=== PATIENT | male | born 1985 | race Caucasian/White ===

== ENCOUNTER 2023-04-08 13:39 | Emergency (ER) | payer OTHER, SELFPAY ==
[2023-04-08 13:41] VITALS: BP 133/76; PULSE 74; RESP 16; TEMP 36.8; O2SAT 97
--- NOTE | 2023-04-08 16:04 | ED.GENADULT ---
HPI - General Adult General Chief complaint: Unspecified Stated complaint: rectal prolapse Time Seen by Provider: 04/08/23 15:54 History of Present Illness HPI narrative: Patient presents with rectal pain, he is concern for rectal prolapse, ongoing for 2 days. No recent straining, has been using sitz bath's with some improvement. Related Data Allergies Allergy/AdvReac Type Severity Reaction Status Date / Time Penicillins Allergy Mild Unverified 02/16/09 12:45 Review of Systems Review of Systems: CONST: No fever. HEENT: No sore throat C/V: No chest pain RESP: No cough GI: No abdominal pain : No dysuria. M/S: No joint pain. SKIN: No rash. NEURO: [No headache or focal numbness or weakness] PSYCH: [No depression] Exam Narrative: EXAMINATION OF ORGAN SYSTEMS/BODY AREAS: Constitutional: Vital signs per nursing GENERAL:[No acute distress, non-toxic appearing.] HEAD: Normal with no signs of head trauma. EYES: EOMI, conjunctiva normal ENT: Hearing grossly intact LUNGS: Nonlabored breathing. HEART: [Regular rate and rhythm] ABD: [Soft], [nontender to palpation] RECTAL: Thrombosed external hemorrhoid without signs of rectal prolapse EXT: Normal range of motion SKIN: [No rashes or lesions.] NEURO: [Alert and oriented x 3. No gross focal sensory or strength deficits.] PSYCH: Normal affect Course Vital Signs Vital signs: Vital Signs Temperature 98.2 F 04/08/23 13:41 Pulse Rate 74 04/08/23 13:41 Respiratory Rate 16 04/08/23 13:41 Blood Pressure 133/76 04/08/23 13:41 Pulse Oximetry 97 04/08/23 13:41 Oxygen Delivery Room Air 04/08/23 13:41 Temperature 98.2 F 04/08/23 13:41 Pulse Rate 74 04/08/23 13:41 Respiratory Rate 16 04/08/23 13:41 Blood Pressure 133/76 04/08/23 13:41 Pulse Oximetry 97 04/08/23 13:41 Oxygen Delivery Room Air 04/08/23 13:41 Medical Decision Making [facility] Narrative Medical decision making narrative: Patient presenting with concern for rectal prolapse, he had pain for the last few days, on exam he does not have prolapse he does have thrombosed external hemorrhoids, he is otherwise tolerating the pain. He is already doing sitz bath's, I will give him prescriptions for Anusol and viscous lidocaine and given close follow-up with general surgery. Patient agreeable to this. Vital Signs Vital Signs: Vital Signs Temperature 98.2 F 04/08/23 13:41 Pulse Rate 74 04/08/23 13:41 Respiratory Rate 16 04/08/23 13:41 Blood Pressure 133/76 04/08/23 13:41 Pulse Oximetry 97 04/08/23 13:41 Oxygen Delivery Room Air 04/08/23 13:41 Temperature 98.2 F 04/08/23 13:41 Pulse Rate 74 04/08/23 13:41 Respiratory Rate 16 04/08/23 13:41 Blood Pressure 133/76 04/08/23 13:41 Pulse Oximetry 97 04/08/23 13:41 Oxygen Delivery Room Air 04/08/23 13:41 Discharge Plan Discharge Clinical Impression: External hemorrhoid, thrombosed Patient Disposition: Home, Self-Care Condition: Stable Instructions: Antibiotic Form, Thrombosed Hemorrhoid (ED) Additional Instructions: Please call general surgery as soon as possible for followup. Prescriptions: New hydrocortisone [Anusol-HC] 2.5 % cream with perineal applicator 1 applic RECTAL DAILY PRN (Reason: hemorrhoids) Qty: 30 0RF lidocaine HCl [Aspercreme (lidocaine HCl)] 4 % cream 1 applic topical Q8H PRN (Reason: pain) Qty: 120 0RF Rx Instructions: Apply to hemorrhoid. Follow-up/Referrals: Tao Richter MD [Physician] - 2 Days PHYSICIAN,WORK AND FAMILY LIFE CONSULTANT [Primary Care Provider] -
== END 2023-04-08 16:18 | disposition home or self-care (01) ==
LOC: ANHED 16:09
PROVIDERS: Emergency Provider Emergency Medicine
DX: K64.5 Perianal venous thrombosis (principal)
CPT/HCPCS: 99283

== ENCOUNTER 2023-10-03 19:22 | Emergency (ER) | payer MEDICAID, SELFPAY ==
[2023-10-03 19:31] VITALS: BP 139/92; PULSE 85; RESP 18; TEMP 36.6; O2SAT 99
--- NOTE | 2023-10-03 20:24 | ED.GENADULT ---
HPI - General Adult General Chief complaint: Unspecified Stated complaint: Infected tattoo Time Seen by Provider: 10/03/23 19:45 Source: patient Mode of arrival: ambulatory Limitations: no limitations History of Present Illness HPI narrative: This is a 38-year-old male who presents to the ED with chief complaint of possible infected tattoo to the left forearm. Patient reports that he get the 10-8 days ago. Reports that he had a local reaction to the adhesive covering. He states that he started to notice some scabbing to the middle of the tattoo. He had been covering with bacitracin. When he removed part of he noticed a scab came there were some purulent fluid. Reports some generalized redness but minimal pain. Denies fevers, chills, nausea, vomiting. Related Data Allergies Allergy/AdvReac Type Severity Reaction Status Date / Time Penicillins Allergy Mild Unverified 02/16/09 12:45 Review of Systems Review of Systems: All systems as dictated in HPI Exam Narrative: GENERAL: Well-appearing, well-nourished, and in no acute distress. HEAD: Normocephalic, atraumatic. EYES: PERRLA and EOMI. ENT: Nares clear, no rhinorrhea or epistaxis. Mucous membranes moist. Oropharynx without tonsillar hypertrophy exudate or other lesions. NECK: Supple. No adenopathy or masses. CHEST: No respiratory distress. Clear to auscultation. No wheezes rales or rhonchi HEART: Regular rate and rhythm. No murmur heard. Normal peripheral pulses. ABDOMEN: Soft, nontender, nondistended, normal active bowel sounds. MSK: Normal range of motion. No edema. SKIN: Mild erythema to the center of the tattoo noted to his left dorsal forearm. There is an area of slight drainage but not overly purulent. No induration or focal fluid collection consistent with abscess. NEURO: Alert and oriented x3. No focal deficits. PSYCH: Normal mood and affect. Course Vital Signs Vital signs: Vital Signs Temperature 97.9 F 10/03/23 19:31 Pulse Rate 85 10/03/23 19:31 Respiratory Rate 18 10/03/23 19:31 Blood Pressure 139/92 H 10/03/23 19:31 Pulse Oximetry 99 10/03/23 19:31 Oxygen Delivery Room Air 10/03/23 19:31 Temperature 97.9 F 10/03/23 19:31 Pulse Rate 85 10/03/23 19:31 Respiratory Rate 18 10/03/23 19:31 Blood Pressure 139/92 H 10/03/23 19:31 Pulse Oximetry 99 10/03/23 19:31 Oxygen Delivery Room Air 10/03/23 19:31 Medical Decision Making MDM Narrative Medical decision making narrative: This is a 38-year-old male who presents to the ED with chief complaint of possible infection after type 2. Vitals are normal. Afebrile. Exam does show slight redness and some drainage from this central area of the tattoo. No induration or fluid collection to suggest abscess. No systemic signs or symptoms. Rx for Bactrim will be given for cellulitis. Pt will be discharged in stable condition. Return precautions given and supportive measures discussed. Pt is understanding and agreeable with plan for discharge and follow-up with PCP. Vital Signs Vital Signs: Vital Signs Temperature 97.9 F 10/03/23 19:31 Pulse Rate 85 10/03/23 19:31 Respiratory Rate 18 10/03/23 19:31 Blood Pressure 139/92 H 10/03/23 19:31 Pulse Oximetry 99 10/03/23 19:31 Oxygen Delivery Room Air 10/03/23 19:31 Temperature 97.9 F 10/03/23 19:31 Pulse Rate 85 10/03/23 19:31 Respiratory Rate 18 10/03/23 19:31 Blood Pressure 139/92 H 10/03/23 19:31 Pulse Oximetry 99 10/03/23 19:31 Oxygen Delivery Room Air 10/03/23 19:31 Discharge Plan Discharge Clinical Impression: Cellulitis Patient Disposition: Home, Self-Care Condition: Stable Instructions: Antibiotic Form Additional Instructions: Your exam today is consistent with cellulitis. Please take Bactrim as prescribed. Follow-up with PCP. If you have any new or worsening symptoms please return to the ER for further evaluation. Prescriptions: New
[2023-10-03 21:30] VITALS: BP 127/86; PULSE 71; RESP 14; TEMP 36.8; O2SAT 100
== END 2023-10-03 21:29 | disposition home or self-care (01) ==
LOC: ANHED 20:58
PROVIDERS: Emergency Provider Physician Assistant
DX: L03.114 Cellulitis of left upper limb (principal)
CPT/HCPCS: 99283

== ENCOUNTER 2024-02-10 18:15 | Emergency (ER) | payer MEDICAID, SELFPAY ==
[2024-02-10 18:21] VITALS: BP 140/109; PULSE 72; RESP 18; TEMP 36.7; O2SAT 97
--- NOTE | 2024-02-10 20:33 | ED.GENADULT ---
HPI - General Adult General Chief complaint: Unspecified Stated complaint: hemorrhoids Time Seen by Provider: 02/10/24 19:17 Source: patient Mode of arrival: ambulatory Limitations: no limitations History of Present Illness HPI narrative: this is a 38-year-old male who presents to the ED for chief complaint of rectal bleeding intermittent for the past week. Reports bright red blood per rectum on the tissue paper and in the stools. He states that he has known internal hemorrhoids but has been unable to set up follow-up with general surgery. States he has had a couple of dizzy spells this week but currently is asymptomatic. He knows that he has a lot of constipation and has been straining which is worsening hemorrhoids. Denies abdominal pain, nausea, vomiting, diarrhea, fevers and chills. Related Data Allergies Allergy/AdvReac Type Severity Reaction Status Date / Time Penicillins Allergy Mild Unverified 02/16/09 12:45 Review of Systems Review of Systems: All systems as dictated in HPI Exam Narrative: GENERAL: Well-appearing, well-nourished, and in no acute distress. HEAD: Normocephalic, atraumatic. EYES: PERRLA and EOMI. ENT: Nares clear, no rhinorrhea or epistaxis. Mucous membranes moist. Oropharynx without tonsillar hypertrophy exudate or other lesions. NECK: Supple. No adenopathy or masses. CHEST: No respiratory distress. Clear to auscultation. No wheezes rales or rhonchi HEART: Regular rate and rhythm. No murmur heard. Normal peripheral pulses. ABDOMEN: Soft, nontender, nondistended, normal active bowel sounds. MSK: Normal range of motion. No edema. SKIN: Warm, dry, no rash. NEURO: Alert and oriented x4. No focal deficits. PSYCH: Normal mood and affect. : Rectal exam performed with RN budget controller present. No external lesions. No anal fissure. No bleeding Course Vital Signs Vital signs: Vital Signs Temperature 98.0 F 02/10/24 18:21 Pulse Rate 72 02/10/24 18:21 Respiratory Rate 18 02/10/24 18:21 Blood Pressure 140/109 H 02/10/24 18:21 Pulse Oximetry 97 02/10/24 18:21 Temperature 98.0 F 02/10/24 18:21 Pulse Rate 72 02/10/24 18:21 Respiratory Rate 18 02/10/24 18:21 Blood Pressure 140/109 H 02/10/24 18:21 Pulse Oximetry 97 02/10/24 18:21 Medical Decision Making MDM Narrative Medical decision making narrative: This is a 30-year-old male who presents to the ED for concern over rectal bleeding. He has known hemorrhoids. Vitals are normal. Exam is benign overall. Rectal exam shows no external lesions or bleeding. advised that the patient needs to be definitively manage for hemorrhoids with General surgery. prescriptions for MiraLax, Colace, Anusol were given. Pt will be discharged in stable condition. Return precautions given and supportive measures discussed. Pt is understanding and agreeable with plan for discharge and follow-up with PCP/surgery Vital Signs Vital Signs: Vital Signs Temperature 98.0 F 02/10/24 18:21 Pulse Rate 72 02/10/24 18:21 Respiratory Rate 18 02/10/24 18:21 Blood Pressure 140/109 H 02/10/24 18:21 Pulse Oximetry 97 02/10/24 18:21 Temperature 98.0 F 02/10/24 18:21 Pulse Rate 72 02/10/24 18:21 Respiratory Rate 18 02/10/24 18:21 Blood Pressure 140/109 H 02/10/24 18:21 Pulse Oximetry 97 02/10/24 18:21 Lab Data 02/10/24 21:07 02/10/24 21:07 Labs: Lab Results 02/10/24 Range/Units 21:07 WBC 7.4 (4.5-10.0) K/mm3 RBC 5.32 (4.6-6.20) M/mm3 Hgb 15.5 (14.0-18.0) g/dL Hct 45.5 (42.0-52.0) % MCV 85.5 (80-100) fl MCH 29.1 (26-34) pg MCHC 34.1 (32-36) g/dl RDW 13.2 (11.5-14.5) % Plt Count 305 (150-375) k/mm3 MPV 9.5 (7.4-10.4) fl Immature Gran % (Auto) 0.3 (0-0.5) % Neut % (Auto) 48.4 (45.5-73.1) % Lymph % (Auto) 38.3 (18.3-44.2) % [place] % (Auto) 7.4 (2.6-8.5) % Eos % (Auto) 4.0 (0-4.4) % Baso % (A
[2024-02-10 21:14] LABS: Basophils Absolute Auto 0.1 K/mm3 (0.0-0.1); Basophils Percent Auto 1.6 % (0.2-1.2); Eosinophils Absolute Auto 0.3 K/mm3 (0-0.3); Hematocrit 45.5 % (42.0-52.0); Hemoglobin 15.5 g/dL (14.0-18.0); Immature Granulocyte Absolute 0.02 K/mm3 (0.00-0.031); Immature Granulocyte Percent A 0.3 % (0-0.5); Lymphocytes Absolute Auto 2.84 K/mm3 (0.9-3.2); Lymphocytes Percent Auto 38.3 % (18.3-44.2); Mean Corpuscular HGB Conc 34.1 g/dl (32-36); Mean Corpuscular Hemoglobin 29.1 pg (26-34); Mean Corpuscular Volume 85.5 fl (80-100); Mean Platelet Volume 9.5 fl (7.4-10.4); Monocytes Absolute Auto 0.6 K/mm3 (0.1-0.6); Monocytes Percent Auto 7.4 % (2.6-8.5); Neutrophils Absolute Auto 3.6 K/mm3 (1.3-6.7); Neutrophils Percent Auto 48.4 % (45.5-73.1); Platelet Count Result 305 k/mm3 (150-375); Red Blood Count 5.32 M/mm3 (4.6-6.20); Red Cell Distribution Width 13.2 % (11.5-14.5); White Blood Count 7.4 K/mm3 (4.5-10.0)
[2024-02-10 21:23] LABS: Anion Gap 14 mmol/L (4-12); Blood Urea Nitrogen 14 mg/dL (9-20); Calcium 9.5 mg/dL (8.4-10.2); Carbon Dioxide 23 mmol/L (22-30); Chloride 104 mmol/L (98-107); Estimated CRCL calculation 168 ml/min; Estimated Glomerular Filt Rate > 60; Glucose 89 mg/dL (65-110); Sodium 141 mmol/L (137-145)
== END 2024-02-10 21:36 | disposition home or self-care (01) ==
PROVIDERS: Emergency Provider Physician Assistant
DX: K62.5 Hemorrhage of anus and rectum (principal)
CPT/HCPCS: 36415; 80048; 85025; 99283